=== PATIENT | male | born 1960 | race Caucasian/White ===

== ENCOUNTER → 2018-09-04 | Outpatient (CLI) | payer BC ==
--- NOTE | 2018-09-05 08:49 | RADRPT ---
AMENDMENT: 09/12/2018 1:07:01 PM Tobias Cruz M.d Correction: Exam was performed of the RIGHT hip. Technique should read: TECHNIQUE: 6 views of the RIGHT hip were performed. PROCEDURE: XR Hip. CLINICAL INDICATION: PRE OIP TECHNIQUE: 6 views of the left hip were performed. COMPARISON: None. FINDINGS: Severe arthrosis with complete joint space loss, subchondral cystic and sclerotic changes, and margin al osteophyte formation. Diffuse osteopenia without fracture or dislocation. Soft tissues are normal. IMPRESSION: Severe degenerative joint disease of the right hip. Diffuse osteopenia. RPTAT:AAJJ Physician Gildardo Date Time Electronically viewed and signed by Physician Gildardo on 09/12/2018 13:08 /
== END | disposition home or self-care (01) ==
LOC: HKI 12:59
PROVIDERS: ATTEND Orthopaedic Surgery Adult Reconstructive Orthopaedic Surgery
DX: M16.10 Unilateral primary osteoarthritis, unspecified hip (principal); M25.559 Pain in unspecified hip
CPT/HCPCS: 73502

== ENCOUNTER 2018-09-10 17:03 | Emergency (ER) | payer BC, OTHER ==
[~2018-09-10] VITALS: Ht 167.6 cm; Wt 100.3 kg
[2018-09-10 17:07] VITALS: BP 140/87; PULSE 107; RESP 20; Ht 167.6 cm; Wt 100.3 kg
--- NOTE | 2018-09-10 19:07 | ERD ---
ER Documentation Chief Complaint Chief Complaint wound draining post op right hip replacement 09/05/18 HPI Patient is a 57-year-old male who with a recent right hip replacement on September 05 who presents with leakage from the wound. This morning the family noticed "water from the incision". The patient has no fevers and no pain. Upon review of old medical records this is the patient's first visit to the emergency department. He does have a primary doctor and his orthopedic surgeon was Dr. Lazo. ROS All systems reviewed and are negative except as per history of present illness. Allergies Allergies: Coded Allergies: No Known Allergy (Unverified , 09/10/18) PMhx/Soc Medical and Surgical Hx: pt denies Medical Hx History of Surgery: No Anesthesia Reaction: No Hx Neurological Disorder: No Hx Respiratory Disorders: No Hx Cardiac Disorders: No Hx Psychiatric Problems: No Hx Miscellaneous Medical Probl: No Hx Alcohol Use: No Hx Substance Use: No Hx Tobacco Use: No Smoking Status: Never smoker FmHx Family History: No diabetes Physical Exam Vitals Vital Signs Date Temp Pulse Resp B/P (MAP) Pulse Ox O2 O2 Flow FiO2 Time Delivery Rate 09/10/18 99.4 107 20 140/87 97 17:07 (104) Physical Exam Const: No acute distress Head: Atraumatic Eyes: Normal Conjunctiva ENT: Normal External Ears, Nose and Mouth. Neck: Full range of motion. No meningismus. Resp: Clear to auscultation bilaterally Cardio: Regular rate and rhythm, no murmurs Abd: Soft, non tender, non distended. Normal bowel sounds Skin: Incision to the right hip is clean, dry, and intact without sign of infection Back: No midline or flank tenderness Ext: No cyanosis, or edema Neur: Awake and alert Psych: Normal Mood and Affect Procedures/MDM Patient is a 57-year-old male who presents with wound leakage. The incision is clean, dry, and intact without signs of infection at this time. There is no sign of redness or pus and the patient is afebrile. I believe this is most likely a seroma which has drained spontaneously. I spoke with Dr. Lazo the orthopedic surgeon who will see the patient in follow-up this week. Departure Diagnosis: Primary Impression: Encounter for post surgical wound check Condition: Fair Patient Instructions: Post Op Wound Check, General Additional Instructions: Specialist:Usted tiene jake condicin mdica que requiere que josseline a un especialista dentro de los prximos 1-2 chiu.POR FAVOR,CON GARZON SEGUIMIENTO DE PRIMARIA PHSICIAN refferal. SI USTED NO TIENE UN MDICO GENERAL Y / O USTED NO PUEDE PAGAR fletcher a un mdico,los siguientes kowalski RECURSOS sido suministrado a usted. ES GARZON RESPONSABILIDAD PARA SER VISTOS POR EL ESPECIALISTA: MORE BOSE MD Sep 10, 2018 19:07
== END 2018-09-10 18:06 | disposition home or self-care (01) ==
LOC: E/R 17:03
DX: Z48.01 Encounter for change or removal of surgical wound dressing (principal); Z96.641 Presence of right artificial hip joint
CPT/HCPCS: 99281